=== PATIENT | male | born 1965 | race Caucasian/White ===

== ENCOUNTER 2020-10-02 13:53 | Emergency (ER) | payer SELFPAY ==
[~2020-10-02] VITALS: Ht 185 cm; Wt 119.0 kg
[2020-10-02] MEDS ORDERED: morphine INJ 10 MG/ML 1ML (SYR OR VIAL) IVP STA (14:34)
[2020-10-02 14:35] LABS: BASOPHILS # (AUTO) 0.1 10^3/uL (0.0-0.1); BASOPHILS % (AUTO) 0 % (0-10); EOSINOPHILS # (AUTO) 0.3 10^3/uL (0.0-0.3); EOSINOPHILS % (AUTO) 1 % (0-10); HEMATOCRIT 45 % (40-54); HEMOGLOBIN 15.6 g/dL (13.3-17.7); LYMPHOCYTES # (AUTO) 1.5 10^3/uL (1.0-4.0); LYMPHOCYTES % (AUTO) 8 % (12-44); MEAN CORPUSCULAR HEMOGLOBIN 30 pg (25-34); MEAN CORPUSCULAR HGB CONC 34 g/dL (32-36); MEAN CORPUSCULAR VOLUME 87 fL (80-99); MONOCYTES # (AUTO) 1.5 10^3/uL (0.0-1.0); MONOCYTES % (AUTO) 8 % (0-12); NEUTROPHILS # (AUTO) 14.3 10^3/uL (1.8-7.8); NEUTROPHILS % (AUTO) 81 % (42-75); PLATELET COUNT 232 10^3/uL (130-400); WHITE BLOOD COUNT 17.6 10^3/uL (4.3-11.0)
--- NOTE | 2020-10-02 14:35 | ED Upper Extremity ---
General Chief Complaint: Upper Extremity Stated Complaint: R ELBOW SWOLLEN Nursing Triage Note: PT PRESENTS TO ED REFERRED BY [facility] FOR CONCERNS OF R ELBOW SWELLING POSSIBLE SEPTIC JOINT. PT REPORTS THE SWELLING STARTED AROUND 0200 THIS AM. PT REPORTS IN 2019 HE HAD A SEPTIC JOINT IN THAT SAME ELBOW. Nursing Sepsis Screen: Possible Sepsis Risk Source: patient, spouse Exam Limitations: no limitations (CATHERINE CRAIG MED STUDENT) History of Present Illness Date Seen by Provider: Oct 02, 2020 Time Seen by Provider: 14:20 Initial Comments Pt is a 55yo male with PMH of insulin dependent DM who presents to the ER for R elbow pain and swelling. States it started this morning around 2am when he rolled over in bed and felt pain in his elbow. It has since at least doubled in size. Pain is worse with movement. He reports having an infected bursitis in the same elbow in 2019 which required hospitalization for IV antibiotics and eventually surgical intervention. He reports that the area swelled up again a few weeks ago, but he had no pain and it resolved shortly after. Him and his are from [place], and he actually has an appointment with his orthopedic surgeon there on Tuesday (10/07). He denies any numbness or tingling, but reports chills on the way to the ED. Also denies SOB, chest pain, n/v. Onset: this morning Pain/Injury Location: right elbow Method of Injury: other (no known injury) Modifying Factors: Improves With Movement (CATHERINE CRAIG MED STUDENT) Initial Comments Patient's orthopedic surgeon is Dr. Sutherland in [place] [phone]. They have arranged an appointment with him for next October 07. X-rays obtained at [facility] earlier today demonstrated no acute abnormalities. There were degenerative changes. (DARRION MAHONEY MD) Allergies and Home Medications Allergies Coded Allergies: clindamycin (Verified Allergy, Intermediate, Rash, 10/02/20) Home Medications Doxycycline Hyclate 100 Mg Tablet, 100 MG PO BID Prescribed by: DARRION HUITRON on 10/02/20 1625 Sulfamethoxazole/Trimethoprim 1 Each Tablet, 1 EACH PO BID Prescribed by: DARRION HUITRON on 10/02/20 1625 Patient Home Medication List Home Medication List Reviewed: Yes (DARRION MAHONEY MD) Review of Systems Constitutional: chills; No fever EENTM: no symptoms reported Respiratory: No cough, No short of breath Cardiovascular: No chest pain Gastrointestinal: No abdominal pain, No nausea, No vomiting Genitourinary: no symptoms reported Musculoskeletal: joint pain (R elbow) Skin: other (swelling to R elbow) Psychiatric/Neurological: Denies Numbness, Denies Tingling, Denies Weakness (CATHERINE CRAIG MED STUDENT) Past [id number]-[id number]-[id number] Hx Patient Social History Alcohol Use: Rarely Uses Smoking Status: Never a Smoker Recent Infectious Disease Expo: No Recent Hopitalizations: No (CATHERINE CRAIG MED STUDENT) Seasonal Allergies Seasonal Allergies: No (CATHERINE CRAIG MED STUDENT) Past Medical History Surgeries: Yes Orthopedic (R elbow bursitis, R small finger tendon reconstruction, Bilat carpal tunnel, L tibia) Respiratory: No Cardiac: No Neurological: No Genitourinary: No Gastrointestinal: No Musculoskeletal: No Endocrine: Yes Diabetes, Insulin dep HEENT: No Cancer: No Psychosocial: No Integumentary: No Blood Disorders: No (CATHERINE CRAIG MED STUDENT) Physical Exam Vital Signs Vital Signs - First Documented 10/02/20 14:14 Temp 37.6 Pulse 108 Resp 20 B/P (MAP) 135/84 (101) Pulse Ox 97 (DARRION MAHONEY MD) Vital Signs Capillary Refill : Less Than 3 Seconds (CATHERINE CRAIG MED STUDENT) Height, Weight, BMI Height: '" Weight: lbs. oz. kg; 34.00 BMI Method: General Appearance: WD/WN, no apparent distress HEENT: PERRL/EOMI Neck: full range of motion, supple Cardiovascular: regular rate, rhythm, no murmur Respiratory: lungs clear, no respiratory distress, no accessory muscle use Gastrointestinal: normal bowel sounds, non tender, soft Shoulder: normal inspection Elbow/Forearm: Right, limited ROM (decreased flexion and extension due to pain), soft tissue tenderness, swelling (over R olecranon, extends distally into R forearm) Wrist: Yes normal inspection Hand: normal inspection Neurologic/Tendon: normal sensation, normal motor functions, normal tendon functions, responds to pain Neurologic/Psychiatric: alert, normal mood/affect, oriented x 3 Skin: warm/dry, other (minimal erythema to swelled area on R elbow) (CRAIG,CATHERINE,MED STUDENT) Procedures/Interventions Progress Skin was cleansed with alcohol. Lidocaine 1 mL was injected under the skin for local anesthetic. Skin was then prepped with Betadine. Sterile technique was used to aspirate the bursa using a 20-gauge needle. Initially slightly cloudy fluid was aspirated, approximately 1 mL. Some blood then followed. Patient tolerated the procedure well. Procedure was performed by Catherine Craig, MS 4 and myself. (DARRION MAHONEY MD) Progress/Results/Core Measures Results/Orders Lab Results Laboratory Tests Test 10/02/20 14:27 10/02/20 14:56 Range/Units White Blood Count 17.6 H 4.3-11.0 10^3/uL Red Blood Count 5.20 4.30-5.52 10^6/uL Hemoglobin 15.6 13.3-17.7 g/dL Hematocrit 45 40-54 % Mean Corpuscular Volume 87 80-99 fL Mean Corpuscular Hemoglobin 30 25-34 pg Mean Corpuscular Hemoglobin Concent 34 32-36 g/dL Red Cell Distribution Width 12.3 10.0-14.5 % Platelet Count 232 130-400 10^3/uL Mean Platelet Volume 11.0 9.0-12.2 fL Immature Granulocyte % (Auto) 1 % Neutrophils (%) (Auto) 81 H 42-75 % Lymphocytes (%) (Auto) 8 L 12-44 % Monocytes (%) (Auto) 8 0-12 % Eosinophils (%) (Auto) 1 0-10 % Basophils (%) (Auto) 0 0-10 % Neutrophils # (Auto) 14.3 H 1.8-7.8 10^3/uL Lymphocytes # (Auto) 1.5 1.0-4.0 10^3/uL Monocytes # (Auto) 1.5 H 0.0-1.0 10^3/uL Eosinophils # (Auto) 0.3 0.0-0.3 10^3/uL Basophils # (Auto) 0.1 0.0-0.1 10^3/uL Immature Granulocyte # (Auto) 0.1 0.0-0.1 10^3/uL Neutrophils % (Manual) 90 % Lymphocytes % (Manual) 5 % Monocytes % (Manual) 4 % Eosinophils % (Manual) 1 % Blood Morphology Comment NORMAL Prothrombin Time 12.9 12.2-14.7 SEC INR Comment 0.9 0.8-1.4 Activated Partial Thromboplast Time 27 24-35 SEC Sodium Level 132 L 135-145 MMOL/L Potassium Level 4.0 3.6-5.0 MMOL/L Chloride Level 99 98-107 MMOL/L Carbon Dioxide Level 20 L 21-32 MMOL/L Anion Gap 13 5-14 MMOL/L Blood Urea Nitrogen 11 7-18 MG/DL Creatinine 1.02 0.60-1.30 MG/DL Estimat Glomerular Filtration Rate > 60 BUN/Creatinine Ratio 11 Glucose Level 337 H 70-105 MG/DL Lactic Acid Level 1.40 0.50-2.00 MMOL/L Uric Acid 5.1 2.6-7.2 MG/DL Calcium Level 9.1 8.5-10.1 MG/DL Corrected Calcium 8.9 8.5-10.1 MG/DL Total Bilirubin 0.9 0.1-1.0 MG/DL Aspartate Amino Transf (AST/SGOT) 14 5-34 U/L Alanine Aminotransferase (ALT/SGPT) 26 0-55 U/L Alkaline Phosphatase 72 40-136 U/L C-Reactive Protein High Sensitivity 1.88 H 0.00-0.50 MG/DL Total Protein 7.2 6.4-8.2 GM/DL Albumin 4.2 3.2-4.5 GM/DL Body Fluid Source SYNOVIAL Body Fluid Color RED Body Fluid Appearance MKD BLDY Body Fluid WBC 169064 /uL Body Fluid RBC 33173 /uL Body Fluid Polynuclear WBCs 95 % Body Fluid Mononuclear WBCs 3 % Body Fluid Lymphocytes 2 % Body Fluid Eosinophils 0 % Body Fluid Other Cells 0 % Body Fluid Crystals NOT SEEN (DARRION MAHONEY MD) My Orders Orders - DARRION MAHONEY MD Cbc With Automated Diff (10/02/20 14:21) Comprehensive Metabolic Panel (10/02/20 14:21) Blood Culture (10/02/20 14:21) Protime With Inr (10/02/20 14:21) Partial Thromboplastin Time (10/02/20 14:21) Ed Iv/Invasive Line Start (10/02/20 14:21) Vital Signs Adult Sepsis Patie Q15M (10/02/20 14:21) Remove Rings In Anticipation O (10/02/20 14:21) Lactic Acid Analyzer (10/02/20 14:21) Hs C Reactive Protein (10/02/20 14:21) Uric Acid (10/02/20 14:21) Body Fluid Culture (10/02/20 14:32) Lidocaine 1% Inj 20 Ml (Xylocaine 1% Inj (10/02/20 14:45) Crystals,Body Fluid (10/02/20 14:32) Ketorolac Injection (Toradol Injection) (10/02/20 14:45) Morphine Injection (Morphine Injection (10/02/20 14:34) Manual Differential (10/02/20 14:27) Outside Films For Comparison (10/02/20 ) Body Fluid Cell Count (10/02/20 15:13) Ceftriaxone For Iv Use (Rocephin For I (10/02/20 16:15) Vancomycin Injection (Vancomycin Injecti (10/02/20 16:15) (DARRION MAHONEY MD) Medications Given in ED Current Medications Medications Dose Ordered Sig/Matti Route Start Time Stop Time Status Last Admin Dose Admin Ceftriaxone Sodium 1000 mg/ Sterile Water 10 ml @ 200 mls/hr ONCE ONCE IV 10/02/20 16:15 10/02/20 16:17 DC 10/02/20 17:05 200 MLS/HR Ketorolac Tromethamine 15 mg ONCE ONCE IVP 10/02/20 14:45 10/02/20 14:46 DC 10/02/20 14:38 15 MG (DARRION MAHONEY MD) Vital Signs/I&O 10/02/20 14:14 Temp 37.6 Pulse 108 Resp 20 B/P (MAP) 135/84 (101) Pulse Ox 97 (DARRION MAHONEY MD) Blood Pressure Mean: 101 Progress Progress Note : Time: 16:30 Progress Note Aspiration of the right olecranon bursa was performed with the assistance of Catherine Craig, MS 4. 1 to 2 mL of cloudy and bloody fluid was aspirated. This was sent for lab analysis. There was a relative leukocytosis of the bursal fluid. Patient was also noted to have a serum leukocytosis. The case was discussed with Dr. CORONA. He recommends a dose of IV antibiotics in the ER followed by doxycycline and Bactrim with strict return precautions. Patient did not appear to be truly septic as he is afebrile and the lactic acid and CRP values are low. Rocephin and vancomycin are being administered for initial antibiotic therapy. Blood cultures were drawn prior to antibiotic therapy. Plan is for discharge with strict return precautions after antibiotic administration. (DARRION MAHONEY MD) Departure Impression Primary Impression: Infection of bursa Additional Impression: Hyperglycemia Disposition: 01 HOME, SELF-CARE Condition: Improved Departure-Patient Inst. Decision time for Depature: 16:52 (DARRION MAHONEY MD) Referrals: NO,LOCAL PHYSICIAN (PCP/Family) Primary Care Physician Patient Instructions: Bursitis (DC) Add. Discharge Instructions: Complete your antibiotics as prescribed. Use Tylenol (acetaminophen) up to 1000 mg every 6 hours as needed for pain. Add ibuprofen up to 600 mg every 6 hours as needed for additional pain relief. Return to the emergency room if you have notable worsening in condition including expansion of pain and redness, fevers over 100 degrees, chills, or other significant symptoms. Call Dr. Mahoney ([phone]) with questions or concerns or advice before returning to the ER. It may be advisable for you to present to another facility that has orthopedic coverage through the weekend. Drink plenty of water and eat a diet low in carbohydrates and sugar. Consider increasing your insulin dose by about 10% while you are actively fighting infection to better control blood sugars. All discharge instructions reviewed with patient and/or family. Voiced understanding. Scripts Sulfamethoxazole/Trimethoprim (Bactrim Ds Tablet) 1 Each Tablet 1 EACH PO BID, #20 TAB Prov: DARRION MAHONEY MD 10/02/20 Doxycycline Hyclate (Doxycycline Hyclate) 100 Mg Tablet 100 MG PO BID, #20 TAB 0 Refills Prov: DARRION MAHONEY MD 10/02/20 Medical Student Attestation and Attending Note: I have personally interviewed and examined this patient along with Catherine Craig, MS 4. I have reviewed student documentation including history, physical, and assessments. I agree with the documentation except where otherwise noted. Exam: General: Alert, oriented, no acute distress, well developed HEENT: Normocephalic and atraumatic Heart: Regular rate and rhythm without murmur Lungs: Clear to auscultation bilaterally with normal effort Neuropsych: Alert, oriented, no focal deficits Extremities: The lateral and posterior aspects of the right elbow are tender, erythematous, and swollen. There is pain to palpation and range of motion. Fluctuance over the olecranon suggests olecranon bursitis. Skin: Warm and dry without rashes, mild erythema over the tender swollen areas of the right elbow (DARRION MAHONEY MD) CATHERINE CRAIG,MED STUDENT Oct 02, 2020 14:35 DARRION MAHONEY MD Oct 02, 2020 16:25
[2020-10-02] MEDS ORDERED: LIDOCAINE 1% INJ 20 ML 20 ML VIAL INJ ONE (14:45)
[2020-10-02] MEDS ORDERED: KETOROLAC 30 MG/ML VIAL IVP ONE (14:45)
[2020-10-02 14:47] LABS: ALBUMIN 4.2 GM/DL (3.2-4.5); CHLORIDE 99 MMOL/L (98-107); SODIUM 132 MMOL/L (135-145)
[2020-10-02 14:48] LABS: CALCIUM 9.1 MG/DL (8.5-10.1); INR 0.9 (0.8-1.4); PROTHROMBIN TIME PATIENT 12.9 SEC (12.2-14.7)
[2020-10-02 14:50] LABS: GLUCOSE 337 MG/DL (70-105); TOTAL PROTEIN 7.2 GM/DL (6.4-8.2)
[2020-10-02 14:51] LABS: BILIRUBIN,TOTAL 0.9 MG/DL (0.1-1.0); CARBON DIOXIDE 20 MMOL/L (21-32)
[2020-10-02 14:53] LABS: ALKALINE PHOSPHATASE 72 U/L (40-136); CREATININE SERUM 1.02 MG/DL (0.60-1.30); GFR ESTIMATED > 60
[2020-10-02 14:54] LABS: BUN/CREATININE RATIO 11
[2020-10-02 14:56] LABS: ALANINE AMINOTRANSFERASE 26 U/L (0-55); NEUTROPHILS % (MANUAL) 90 %; URIC ACID 5.1 MG/DL (2.6-7.2)
[2020-10-02 14:57] LABS: EOSINOPHILS % (MANUAL) 1 %; LYMPHOCYTES % (MANUAL) 5 %; MONOCYTES % (MANUAL) 4 %; RBC MORPH NORMAL
[2020-10-02 15:47] LABS: BODY FLUID APPEARENCE MKD BLDY; BODY FLUID COLOR RED; BODY FLUID SOURCE SYNOVIAL
[2020-10-02 15:58] LABS: BODY FLUID RBC COUNT 45800 /uL; BODY FLUID WBC TOTAL COUNT 102800 /uL
[2020-10-02 16:05] LABS: BF OTHER CELLS 0 %; LYMPHOCYTES,BODY FLUID 2 %
[2020-10-02] MEDS ORDERED: VANCOMYCIN INJECTION 1,000 MG in NS (IVPB) 250 ML IV SCH (16:15)
[2020-10-02] MEDS ORDERED: cefTRIAXone FOR IV USE 1,000 MG in WATER (STERILE) FOR INJECTION 10 ML IV ONE (16:15)
[2020-10-02] MEDS ORDERED: SULF1TAB35 PO (16:25)
[2020-10-02] MEDS ORDERED: DOXY100T2 PO (16:25)
[2020-10-02 18:49] VITALS: BP 130/79
== END 2020-10-02 18:49 | disposition home or self-care (01) ==
LOC: EDUNIT# 13:53 → ER 13:55
DX: M71.121 Other infective bursitis, right elbow (principal); I10 Essential (primary) hypertension; E10.65 Type 1 diabetes mellitus with hyperglycemia; Z88.1 Allergy status to other antibiotic agents
CPT/HCPCS: 36415; 80053; 83605; 84550; 85007; 85027; 85610; 85730; 86141; 87040; 87070; 87077; 87186; 87205; 89051; 89060